=== PATIENT | male | born 1990 | race American Indian/Alaskan Native ===

== ENCOUNTER 2017-01-14 15:20 | Emergency (ER) | payer OTHER ==
[2017-01-14 15:28] VITALS: BP 140/82
--- NOTE | 2017-01-14 21:05 | Emergency Department Report ---
ED Extremity Problem HPI - General Chief complaint: Extremity Injury, Upper Stated complaint: BOTH HANDS ARE NUMB Time Seen by Provider: 01/14/17 20:08 Source: patient Mode of arrival: Ambulatory Limitations: No Limitations - History of Present Illness Initial comments: 26-year-old male past medical history anemia presents with complaint of persistently cold fingertips with some associated numbness and index middle and ring fingertips bilaterally. Patient states episodes come on after work typically and have been ongoing for several months. 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 Episodes last for 15-20 minutes at a time. No associated chest pain shortness of breath palpitations nausea vomiting fever or chills. States that rewarming his hands usually abates the symptoms. States that he gets some color changes including reddish white skin on fingertips. Occasionally purplish color which abates after rewarming. MD Complaint: extremity pain Onset/Timin -: month(s) Location: left, right, upper extremity Consistency: constant Improves with: nothing Worsens with: nothing Associated Symptoms: denies other symptoms - Related Data Previous Rx's Medication Instructions Recorded Last Taken Type Naproxen 500 mg PO BID PRN #30 tablet 01/14/17 Unknown Rx amLODIPine [Norvasc] 5 mg PO DAILY PRN #30 tab 01/14/17 Unknown Rx Allergies Allergy/AdvReac Type Severity Reaction Status Date / Time No Known Allergies Allergy Unverified 01/14/17 15:26 ED Review of Systems ROS: Stated complaint: BOTH HANDS ARE NUMB Other details as noted in HPI Constitutional: denies: chills, fever Eyes: denies: eye pain, eye discharge, vision change ENT: denies: ear pain, throat pain Respiratory: denies: cough, shortness of breath, wheezing Cardiovascular: denies: chest pain, palpitations Endocrine: no symptoms reported Gastrointestinal: denies: abdominal pain, nausea, diarrhea Genitourinary: denies: urgency, dysuria Musculoskeletal: as per HPI. denies: back pain, joint swelling, arthralgia Skin: denies: rash, lesions Neurological: denies: headache, weakness, paresthesias Psychiatric: denies: anxiety, depression Hematological/Lymphatic: denies: easy bleeding, easy bruising ED Past Medical Hx - Past Medical History Previous Medical History?: No - Surgical History Past Surgical History?: No - Social History Smoking Status: Never Smoker Substance Use Type: None - Medications Home Medications: Home Medications Medication Instructions Recorded Confirmed Last Taken Type Naproxen 500 mg PO BID PRN #30 tablet 01/14/17 Unknown Rx amLODIPine [Norvasc] 5 mg PO DAILY PRN #30 tab 01/14/17 Unknown Rx ED Physical Exam - General Limitations: No Limitations General appearance: alert, in no apparent distress - Head Head exam: Present: atraumatic, normocephalic - Eye Eye exam: Present: normal appearance, PERRL, EOMI - ENT ENT exam: Present: mucous membranes moist - Neck Neck exam: Present: normal inspection - Respiratory Respiratory exam: Present: normal lung sounds bilaterally. Absent: respiratory distress - Cardiovascular Cardiovascular Exam: Present: regular rate, normal rhythm. Absent: systolic murmur, diastolic murmur, rubs, gallop - GI/Abdominal GI/Abdominal exam: Present: soft, normal bowel sounds - Rectal Rectal exam: Present: deferred - Extremities Exam Extremities exam: Present: normal inspection, full ROM (range of motion all fingers fully intact and range of motion fully intact), normal capillary refill (distal capillary refill less than one second all fingers) - Back Exam Back exam: Present: normal inspection - Neurological Exam Neurological exam: Present: alert, oriented X3, CN II-XII intact, normal gait - Psychiatric Psychiatric exam: Present: normal affect, normal mood - Skin Skin exam: Present: warm, dry, intact, normal color. Absent: rash ED Course Vital Signs 01/14/17 15:26 Temperature 98.3 F Pulse Rate 60 Respiratory 16 Rate Blood Pressure 140/82 O2 Sat by Pulse 100 Oximetry ED Medical Decision Making - Medical Decision Making A/P: Raynauds phenomena 1-given patient's occupation and working in freezer and clinical history provided is extremely likely has written on 2-NSAIDs when necessary, I advised patient that he should wear warm gloves if he is working and cold environment or if he is exposed to cold environment or materials 3-I discussed using medication for this phenomenon with the patient. I educated patient on different approaches to treating ray not phenomenon. Patient stated he was interested in medicine and would follow-up with primary care doctor. I prescribed him low dose when necessary amlodipine for episodes. Critical care attestation.: If time is entered above; I have spent that time in minutes in the direct care of this critically ill patient, excluding procedure time. ED Disposition Clinical Impression: Raynaud phenomenon Qualifiers: Raynaud?s-associated gangrene presence: without gangrene Qualified Code(s): I73.00 - Raynaud's syndrome without gangrene Disposition: TO HOME OR SELFCARE Is pt being admited?: No Does the pt Need Aspirin: No Condition: Stable Instructions: Raynaud Disease (ED) Prescriptions: amLODIPine [Norvasc] 5 mg PO DAILY PRN #30 tab PRN Reason: Pain Naproxen 500 mg PO BID PRN #30 tablet PRN Reason: Pain Referrals: [facility] [Outside] - 3-5 Days [facility] [Outside] - 3-5 Days Forms: Work/School Release Form(ED) Time of Disposition: 21:12
== END 2017-01-14 21:30 | disposition home or self-care (01) ==
LOC: ED 15:20
DX: I73.00 Raynaud's syndrome without gangrene (principal)
CPT/HCPCS: 99282

== ENCOUNTER 2019-05-22 18:18 | Emergency (ER) | payer OTHER ==
[2019-05-22 18:49] VITALS: BP 126/67
[2019-05-22] MEDS ORDERED: IBUPROFEN 600 MG TAB PO ONE (20:18)
--- NOTE | 2019-05-22 20:40 | Emergency Department Report ---
ED Back Pain/Injury HPI - General Chief Complaint: Back Pain/Injury Stated Complaint: BACK SPASM Source: patient Limitations: No Limitations - History of Present Illness Initial Comments: 29-year-old -[place] male presents to the emergency room for 1 day history of back pain with no trauma. Patient is taken nothing for pain. 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 Patient reports no primary care provider. Patient denies any penile discharge denies any dysuria or strong smell to urine. Patient denies any any hematuria nausea vomiting fever or chest pain. MD Complaint: back pain -: This morning Severity scale (0 -10): 6 Quality: aching Consistency: constant Improves With: none Worsens With: none Associated Symptoms: denies other symptoms - Related Data Previous Rx's Medication Instructions Recorded Last Taken Type Naproxen 500 mg PO BID PRN #30 tablet 01/14/17 Unknown Rx amLODIPine 5 mg PO DAILY PRN #30 tab 01/14/17 Unknown Rx Allergies Allergy/AdvReac Type Severity Reaction Status Date / Time No Known Allergies Allergy Unverified 01/14/17 15:26 ED Review of Systems ROS: Stated complaint: BACK SPASM Other details as noted in HPI ED Past Medical Hx - Past Medical History Previous Medical History?: No - Surgical History Past Surgical History?: No - Social History Smoking Status: Never Smoker Substance Use Type: Marijuana - Medications Home Medications: Home Medications Medication Instructions Recorded Confirmed Last Taken Type Naproxen 500 mg PO BID PRN #30 tablet 01/14/17 Unknown Rx amLODIPine 5 mg PO DAILY PRN #30 tab 01/14/17 Unknown Rx ED Physical Exam - General Limitations: No Limitations ED Course Vital Signs 05/22/19 18:42 Temperature 98.7 F Pulse Rate 97 H Respiratory 16 Rate Blood Pressure 126/67 O2 Sat by Pulse 98 Oximetry ED Medical Decision Making - Medical Decision Making 29-year-old -[place] male presents to the emergency room for 1 day history of back pain with no trauma. Patient is taken nothing for pain. 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 Patient reports no primary care provider. Patient denies any penile discharge denies any dysuria or strong smell to urine. Patient denies any any hematuria nausea vomiting fever or chest pain. Urinalysis has been ordered and sent to the lab. Ibuprofen 600 mg been ordered for pain management. Urinalysis is negative for any abnormalities. Take [id number] ibuprofen or Tylenol for pain management. Follow-up with [facility] for symptoms persist or gets worse Critical care attestation.: If time is entered above; I have spent that time in minutes in the direct care of this critically ill patient, excluding procedure time. ED Disposition Clinical Impression: Back pain Qualifiers: Back pain location: low back pain Chronicity: acute Back pain laterality: bilateral Sciatica presence: without sciatica Qualified Code(s): M54.5 - Low back pain Disposition: - TO HOME OR SELFCARE Is pt being admited?: No Does the pt Need Aspirin: No Condition: Stable Additional Instructions: Urinalysis is negative for any abnormalities. Take [id number] ibuprofen or Tylenol for pain management. Follow-up with [facility] for symptoms persist or gets worse Referrals: PRIMARY CARE [Primary Care Provider] - 3-5 Days [facility] [Provider Group] - 3-5 Days Forms: Work/School Release Form(ED)
[2019-05-22 21:23] LABS: Bilirubin,Urine NEG (Negative); Blood,Urine NEG (Negative); Color,Urine Yellow (Yellow); Mucus,Urine 3+ /HPF; Protein,Urine <15 mg/dL mg/dL (Negative); Urobilinogen,Urine < 2.0 mg/dL (<2.0)
== END 2019-05-22 21:47 | disposition home or self-care (01) ==
LOC: ED 18:18
DX: M54.9 Dorsalgia, unspecified (principal); F12.10 Cannabis abuse, uncomplicated; Z79.899 Other long term (current) drug therapy
CPT/HCPCS: 81001; 99283